=== PATIENT | male | born 1935 | race Caucasian/White ===

== ENCOUNTER → 2018-09-29 | Outpatient (CLI) | payer OTHER | LOC: M.MRI 07:49 | DX: S83.231A Complex tear of medial meniscus, current injury, right knee, initial encounter (principal); M25.461 Effusion, right knee; M17.11 Unilateral primary osteoarthritis, right knee; M22.41 Chondromalacia patellae, right knee; X58.XXXA Exposure to other specified factors, initial encounter; Y93.89 Activity, other specified; Y92.89 Other specified places as the place of occurrence of the external cause; Y99.8 Other external cause status ==

== ENCOUNTER 2018-11-01 06:33 | Inpatient (IN) | payer OTHER ==
[2018-10-20 09:08] LABS: URINE BILIRUBIN NEGATIVE (Negative); URINE BLOOD NEGATIVE (Negative); URINE CLARITY CLEAR; URINE COLOR YELLOW; URINE GLUCOSE-RANDOM NEGATIVE (Negative); URINE KETONES NEGATIVE (Negative); URINE LEUKOCYTES-REFLEX NEGATIVE (Negative); URINE NITRITE-REFLEX NEGATIVE (Negative); URINE PROTEIN TRACE (Negative); URINE UROBILINOGEN 0.2 E.U./dl (0.2-1.0)
[2018-10-20 09:11] LABS: HEMATOCRIT 36.9 % (42.0-52.0); HEMOGLOBIN 12.4 gm/dL (14.0-18.0); MCH 32.3 pg (26.0-34.0); MCHC 33.7 g/dL (28.0-37.0); MPV 7.7 fl. (7.2-11.1); RBC 3.84 mil/uL (4.50-6.00); RDW-CV 13.5 % (10.5-14.5); WBC 3.9 thou/uL (4.0-11.0)
[2018-10-20 09:15] LABS: INR 1.1; PROTIME 11.2 Seconds (9.20-11.50)
[2018-10-20 09:29] LABS: ALBUMIN 3.4 g/dL (3.4-5.0); CALCIUM 9.3 mg/dL (8.5-10.1); CREATININE 1.4 mg/dL (0.6-1.3); POTASSIUM 4.6 mmol/L (3.5-5.1); TOTAL BILIRUBIN 0.2 mg/dL (<0.1-1.0); TOTAL PROTEIN 7.2 g/dL (6.4-8.2)
--- NOTE | 2018-10-20 18:29 | EKG ---
[place] [address] ELECTROCARDIOGRAM REPORT Name: CANDICE EVANS Room: PRE IN [facility].#: [id number] Admission: Attend Phys: Salomon Brenner Discharge: Date of : 35 Report #: [id number] THIS REPORT FOR: //name// [facility] Test Date: 2018-10-20 Test Time: 09:10:11 Pat Name: CANDICE EVANS Department: Room: Gender: M [employer] Instructor: : 1935 Requested By: Anson Ramírez Order Number: [id number] Reading : Dustin Gallo Measurements Intervals [place]leigh Rate: 58 P: 58 [place]: 224 QRS: 68 QRSD: 120 T: 120 QT: 388 QTc: 382 Interpretive Statements Sinus rhythm Multiple ventricular premature complexes Nonspecific intraventricular conduction delay Inferior infarct, old Abnormal lateral Q waves No previous ECG available for comparison Electronically Signed On 10-20-2018 18:29:41 [employer] by Dustin Gallo [email or web address] <ELECTRONICALLY SIGNED> By: Dustin Gallo MD, [facility] 10/20/18 1829 0910 9 Dustin Gallo MD, FACC /EPI
[~2018-11-01] VITALS: Ht 167.6 cm; Wt 74.8 kg
--- NOTE | ~2018-11-01 | OP ---
[facility] [address] [place] [address] OPERATIVE REPORT Name: CANDICE EVANS Room: [address] IN M.R.#: [id number] Admission: 11/01/18 Attend Phys: Salomon Brenner Discharge: 11/02/18 Date of : 35 Report #: [id number] THIS REPORT FOR: //name// CC: Thomas Underwood PREOPERATIVE DIAGNOSIS: Right knee osteoarthritis. POSTOPERATIVE DIAGNOSIS: Right knee osteoarthritis. PROCEDURE: Right total knee arthroplasty. SURGEON: Anson Ramírez II, DO. RETREAD BUILDER: HELGA Lowery. ANESTHESIA: General endotracheal. ESTIMATED BLOOD LOSS: 50 mL. ANTIBIOTICS: Ancef preoperatively. DRAINS: Medium Hemovac. COMPLICATIONS: None. CONDITION OF THE PATIENT: Stable to recovery room. IMPLANTS: Listed in the operative record and progress note. BRIEF HISTORY: The patient was seen in the preoperative area. Preoperative H and P was performed. Site was marked, questions were answered. Risks and benefits were discussed with the patient in detail about surgery. The patient wished to proceed and assumed all risks. DESCRIPTION OF PROCEDURE: The patient was taken to the operative suite and placed supine on the operative table, given appropriate anesthesia. A well-padded tourniquet was applied to the upper thigh, which was inflated to 300 mmHg after gravity exsanguination. The operative knee was sterilely prepped and draped. Surgery begun by midline incision. This was carried down to the subcutaneous tissues. A medial parapatellar arthrotomy was performed and carried down to bone. The patella was then everted and excess soft tissue removed from around the femur. Femoral cutting block was then applied, checked with a drop conor for rotational alignment, pinned in appropriate position and appropriate cuts were made. A 4-in-1 cutting block was then applied, checked with rotational alignment, pinned in appropriate [place] [address] OPERATIVE REPORT Name: CANDICE EVANS NIKA Room: [address] IN [facility].#: [id number] Admission: 11/01/18 Attend Phys: Salomon Brenner Discharge: 11/02/18 Date of : 35 Report #: [id number] were made. The tibia was then exposed. Excess meniscus was removed. Retractor was placed on the collateral ligaments. The tibial cutting block was then applied in appropriate position and checked with a drop conor for rotation alignment and slope and appropriate cut was made. The tibial bone was removed. The baseplate to the tibia was applied, checked for rotational alignment with the drop conor, pinned in appropriate position. Femur was then applied and a box cut was reamed. This was then trialed with the appropriate spacer, which showed excellent fit and fill and excellent stability of the knee through all range of motion. Patella was then reamed in appropriate fashion and appropriately sized. Three peg holes were drilled. It was then trialed, showed excellent flexion and extension, excellent tracking of the patella within the groove. These trials were then removed. The tibia was punched in appropriate fashion. Bone ends were cleansed with Pulsavac irrigation and cement was mixed and applied to the final implants. These were then malleted into position and held in extension and compressed to allow cement to cure. After it cured, excess was removed utilizing a Hurley and osteotome. The wound was then copiously irrigated, and the final spacer was then malleted in position. The tourniquet was deflated. Hemostasis was obtained with electrocautery. The pain cocktail was injected. PRP gel was sprayed through internal aspects of the knee. A medium Hemovac drain was applied. The capsule was closed with 2 FiberWire and #1 Vicryl in [id number] fashion. The skin was closed with 2-0 Vicryl and running 3-0 Monocryl. Dermabond and sterile dressing applied. Roger wrap and PolarCare applied. The patient transported to recovery room in stable condition. Counts were correct throughout the procedure. By: [id number] Ramírez II, DO /nt
[~2018-11-01 06:33] MED LIST: ALEVE220 MG PO; AMITRIPTYLINE H25 M2 PO; APAP650 PO; COQ-10100 MG PO; FLOMAX0.4 MG PO; FOLIC ACID1 MG PO; LISINOPRIL5 MG PO; LUTEIN20 MG PO; METFORMIN HCL500 MG PO; MYSOLINE50 MG PO; PROSCAR 5MG TABL5 MG PO; SAW PALMETTO450 MG PO; TENORMIN50 MG PO; UNICOMPLEX M TA1 TA1 PO; VITAMIN B-1100 M1 PO; VITAMIN B122500 MCG PO; VITAMIN E400 UNIT PO; VITAMINC500 PO
[2018-11-01 09:20] VITALS: BP 132/75
[2018-11-01 14:10] VITALS: BP 105/62
[2018-11-01 18:00] VITALS: BP 112/57
[2018-11-01 20:00] VITALS: BP 140/74
[2018-11-02] VITALS: BP 140/74
[2018-11-02 04:00] VITALS: BP 154/80
[2018-11-02 04:26] LABS: HEMOGLOBIN 9.8 gm/dL (14.0-18.0)
[2018-11-02 08:20] VITALS: BP 136/69
[2018-11-02 12:15] VITALS: BP 139/62
[2018-11-02 12:22] LABS: URINE BILIRUBIN NEGATIVE (Negative); URINE BLOOD 3+ (Negative); URINE CLARITY CLEAR; URINE COLOR YELLOW; URINE GLUCOSE-RANDOM TRACE (Negative); URINE KETONES NEGATIVE (Negative); URINE LEUKOCYTES NEGATIVE (Negative); URINE NITRITE NEGATIVE (Negative); URINE PROTEIN 1+ (Negative); URINE SPECIFIC GRAVITY 1.025 (1.005-1.030); URINE UROBILINOGEN 0.2 E.U./dl (0.2-1.0)
[2018-11-02 12:29] LABS: BACTERIA 1-9 Few /HPF (None Seen); CASTS None Seen /LPF (None Seen); CRYSTALS None Seen /LPF (None Seen); MUCUS 0-3 Light strn/LPF (None Seen); SQUAMOUS 0-3 Few /LPF (0-3); URINE WBC 0-5 Rare /HPF (0-5)
[2018-11-02 15:33] VITALS: BP 139/62
[2018-11-02 15:58] VITALS: BP 139/62
[2018-11-02] MEDS ORDERED: ASPIRIN325 PO (16:23)
[2018-11-02] MEDS ORDERED: APAP650 PO (16:24)
[2018-11-02] MEDS ORDERED: COLACE100 MG PO (16:34)
[2018-11-02] MEDS ORDERED: PERCOCET PO (17:02)
[2018-11-02] MEDS ORDERED: METAMUCIL0.4 GM PO (17:03)
== END 2018-11-02 17:55 | disposition home health service (06) | DRG 470 ==
LOC: M.PRE 06:33 → M.ORTHSURG 08:26 → M.TBA 08:26 → M.PRE 09:04 → M.ORTHSURG 13:25 → M.PRE 14:38 → M.ORTHSURG 11-02 17:55
PROVIDERS: Orthopaedic Surgery; ADMIT Internal Medicine
PROC: 0SRC0J9 Replacement of Right Knee Joint with Synthetic Substitute, Cemented, Open Approach (ICD-10-PCS; principal; 2018-11-01)
DX: M17.11 Unilateral primary osteoarthritis, right knee (principal); I10 Essential (primary) hypertension; K64.9 Unspecified hemorrhoids; R73.03 Prediabetes; Z95.1 Presence of aortocoronary bypass graft; Z79.899 Other long term (current) drug therapy